=== PATIENT | female | born 1980 | race Caucasian/White ===

== ENCOUNTER 2024-08-03 01:13 | Emergency (ER) | payer BC ==
[~2024-08-03] VITALS: Ht 154.9 cm; Wt 62.1 kg
[2024-08-03 01:29] VITALS: TEMP 36.8; O2SAT 100
[2024-08-03 02:24] LABS: CHLORIDE 102 mEq/L (98-107); INR 0.9; POTASSIUM 3.1 mEq/L (3.5-5.1); PROTHROMBIN TIME 9.8 sec (9.6-11.0); SODIUM 137 mEq/L (136-145)
[2024-08-03 02:25] LABS: CARBON DIOXIDE 24 mEq/L (21-32)
[2024-08-03 02:26] LABS: CALCIUM 9.3 mg/dL (8.7-10.4)
[2024-08-03 02:30] LABS: BASOPHILS % 0.1 % (0.0-2.0); CREATININE 0.6 mg/dL (0.6-1.0); DIFFERENTIAL COMMENT 0; EOSINOPHILS % 1.1 % (0.0-5.0); GLUCOSE 134 mg/dL (70-105); HEMATOCRIT. 36.9 % (36.0-48.0); HEMOGLOBIN. 11.8 g/dL (12.0-16.0); LYMPHOCYTES % 42.6 % (20.0-50.0); MEAN CORPUSCULAR HEMOGLOBIN 25.2 pg (28.0-32.0); MEAN CORPUSCULAR VOLUME 78.6 fL (81.0-99.0); MEAN PLATELET VOLUME 8.4 fl (7.4-10.4); MONOCYTES % 6.7 % (2.0-8.0); NEUTROPHILS % 49.5 % (40.0-76.0); PLATELET 328 x1000/uL (130-400); RED CELL DISTRIBUTION WIDTH 17.5 % (11.6-14.6); WHITE BLOOD COUNT 8.9 x1000/uL (4.5-11.0)
[2024-08-03 02:31] LABS: ETHANOL BLOOD < 10 mg/dL (<10); TROPONIN I HIGH SENSITIVITY 6 ng/L (3.0-34); UREA NITROGEN BLOOD 7 mg/dL (9-23)
[2024-08-03 03:11] LABS: HCG SCREEN NEGATIVE
[2024-08-03 03:22] LABS: *AMPHETAMINES SCREEN URINE NEGATIVE (NEGATIVE); *BARBITURATES SCREEN URINE NEGATIVE (NEGATIVE); *BENZODIAZEPINES SCREEN URINE NEGATIVE (NEGATIVE); *COCAINE SCREEN URINE NEGATIVE (NEGATIVE); CANNABINOID URINE SCREEN NEGATIVE (NEGATIVE); METHADONE URINE SCREEN NEGATIVE (NEGATIVE); OPIATES URINE SCREEN NEGATIVE (NEGATIVE); PHENCYCLIDINE URINE SCREEN NEGATIVE (NEGATIVE)
[2024-08-03 03:23] LABS: ECSTASY MDMA SCREEN URINE NEGATIVE (NEGATIVE)
[2024-08-03 03:52] LABS: CLARITY URINE CLEAR (CLEAR); COLOR URINE YELLOW (YELLOW); GLUCOSE URINE NEGATIVE (NEGATIVE); KETONES URINE NEGATIVE (NEGATIVE); LEUKOCYTE ESTERASE URINE NEGATIVE (NEGATIVE); NITRITE URINE NEGATIVE (NEGATIVE); OCCULT BLOOD URINE NEGATIVE (NEGATIVE); PROTEIN URINE NEGATIVE (NEGATIVE); SPECIFIC GRAVITY URINE 1.008 (1.005-1.030); UROBILINOGEN URINE 0.2 E.U./dL (0.2-1.0)
[2024-08-03] MEDS: AMLODIPINE 10MG TABLET PO NR (05:46)
[2024-08-03] MEDS: POTASSIUM CHLORIDE 20MEQ/PACKET PO NR (05:46)
[2024-08-03 06:40] VITALS: BP 144/95; PULSE 88; RESP 16; O2SAT 98
[2024-08-03] MEDS: AMLODIPINE 10MG TABLET PO ONE (06:46)
== END 2024-08-03 06:47 | disposition home or self-care (01) ==
LOC: ER 01:13
DX: I10 Essential (primary) hypertension (principal); Z79.899 Other long term (current) drug therapy
CPT/HCPCS: 36415; 71045; 80048; 80305; 80320; 81003; 84484; 84703; 85025; 93005; 99285; G0480